=== PATIENT | male | born 1970 | race African-American/Black ===

== ENCOUNTER 2018-08-22 21:21 | Emergency (ER) | payer OTHER ==
[~2018-08-22] VITALS: Ht 182.9 cm; Wt 104.3 kg
[2018-08-22] MEDS ORDERED: LOSARTAN POTAS100 MG PO (21:49)
[2018-08-22] MEDS ORDERED: PROZAC20 MG PO (21:49)
[2018-08-22] MEDS ORDERED: ZOLPIDEM TARTRA10 MG PO (21:49)
[2018-08-22] MEDS ORDERED: OMEPRAZOLE 20 M20 M1 PO (21:50)
[2018-08-22 22:01] LABS: ABSOLUTE NEUTROPHILS 5.7 thou/uL (1.4-8.2); BASOPHILS 0.5 % (0.0-2.0); EOSINOPHILS 0.6 % (0.0-3.0); HEMATOCRIT 44.7 % (42.0-52.0); HEMOGLOBIN 15.4 gm/dL (14.0-18.0); LYMPHOCYTES 46.3 % (24.0-44.0); MCH 30.3 pg (26.0-34.0); MCHC 34.4 g/dL (28.0-37.0); MCV 88.2 fL (80.0-100.0); MONOCYTES 8.5 % (1.0-8.0); PLATELET COUNT 164 thou/uL (150-400); POLYS 44.1 % (36.0-66.0); RBC 5.07 mil/uL (4.50-6.00); RDW 13.4 % (10.5-14.5); WBC 12.8 thou/uL (4.0-11.0)
[2018-08-22 22:05] LABS: ANION GAP 13 mmol/L (7-16); BUN 16 mg/dL (7-18); CALCIUM 8.6 mg/dL (8.5-10.1); CHLORIDE 104 mmol/L (98-107); CO2 22 mmol/L (21-32); CREATININE 1.7 mg/dL (0.7-1.3); GLUCOSE 160 mg/dL (74-106); SODIUM 139 mmol/L (136-145)
[2018-08-22 22:06] LABS: POTASSIUM 2.7 mmol/L (3.5-5.1)
[2018-08-22 22:11] LABS: ALBUMIN 3.9 g/dL (3.4-5.0); SALICYLATE < 2.8 mg/dL (2.8-20.0); SGOT 26 U/L (15-37); SGPT 49 U/L (30-65); TOTAL BILIRUBIN 0.5 mg/dL (<0.1-1.0); TOTAL PROTEIN 7.6 g/dL (6.4-8.2)
[2018-08-23 00:36] LABS: URINE BILIRUBIN NEGATIVE (Negative); URINE BLOOD NEGATIVE (Negative); URINE CLARITY CLEAR; URINE COLOR YELLOW; URINE GLUCOSE-RANDOM* NEGATIVE (Negative); URINE KETONES NEGATIVE (Negative); URINE LEUKOCYTES NEGATIVE (Negative); URINE NITRITE NEGATIVE (Negative); URINE PROTEIN (DIPSTICK) NEGATIVE (Negative); URINE SPECIFIC GRAVITY 1.025 (1.005-1.035); URINE UROBILINOGEN 0.2 E.U./dl (0.2-1.0)
[2018-08-23 00:44] LABS: AMP/METHAMP Negative (Negative); BARBITURATES Negative (Negative); BENZODIAZEPINES Negative (Negative); COCAINE Negative (Negative); METHADONE Negative (Negative); OPIATES Negative (Negative); PCP Negative (Negative)
[2018-08-23 01:41] VITALS: BP 142/84
== END 2018-08-23 01:42 | disposition home or self-care (01) ==
LOC: ER 21:21
PROVIDERS: Physician Assistant
DX: F10.129 Alcohol abuse with intoxication, unspecified (principal); R45.851 Suicidal ideations; Y90.0 Blood alcohol level of less than 20 mg/100 ml

== ENCOUNTER → 2020-05-05 | Outpatient (CLI) | payer BC, OTHER ==
[~2020-05-05] VITALS: Ht 182.9 cm; Wt 108.0 kg
[~2020-05-05] MED LIST: AMLODIPINE-OLM1 EAC3 PO; LOSARTAN POTAS100 MG PO; OMEPRAZOLE 20 M20 M1 PO; PROZAC20 MG PO; ZOLPIDEM TARTRA10 MG PO
== END | disposition home or self-care (01) ==
LOC: LAB 09:00 → OR 05-08 10:10 → EDSTATUS 05-08 11:11 → OR 05-08 11:28
PROVIDERS: ATTEND Surgery
DX: K40.90 Unilateral inguinal hernia, without obstruction or gangrene, not specified as recurrent (principal); I10 Essential (primary) hypertension; J45.909 Unspecified asthma, uncomplicated; K21.9 Gastro-esophageal reflux disease without esophagitis; Z98.890 Other specified postprocedural states; Z79.899 Other long term (current) drug therapy; Z11.59 Encounter for screening for other viral diseases

== ENCOUNTER → 2021-06-11 | Outpatient (CLI) | payer OTHER | LOC: ULTRA 10:26 | PROVIDERS: ATTEND Nurse Practitioner | DX: M79.89 Other specified soft tissue disorders (principal) ==

== ENCOUNTER → 2022-01-01 | Outpatient (CLI) | payer OTHER ==
[~2022-01-01] MED LIST changes: +AMLODIPINE PO; +BENAZEPRIL PO; +FLOMAX0.4 MG PO; +PRILOSEC OTC20 MG PO
== END ==
LOC: LAB 10:11
PROVIDERS: ATTEND Student in an Organized Health Care Education/Training Program
DX: Z01.812 Encounter for preprocedural laboratory examination (principal); Z20.822 Contact with and (suspected) exposure to COVID-19

== ENCOUNTER → 2022-01-04 | Outpatient (CLI) | payer OTHER ==
[~2022-01-04] VITALS: Ht 182.9 cm; Wt 108.9 kg
--- NOTE | 2022-01-06 14:07 | PATH ---
[facility] [address] [place] [address] PATHOLOGY RPT PROCEDURE Name: KIRTI CASSIDY Room #: REG HARRISON Arita.#: [id number] Admission: 01/04/22 Date of : 74 Discharge: Report #: [id number] Path Case #: [id number] [facility] Accession Number: [id number] . 01 Material submitted: . gastrointestinal site - GASTRIC POLYP BX . 01 Clinical history: . GERD GASTRIC HIATAL HERNIA . 02 Diagnosis: Gastric polyp, biopsy: - Gastric antral mucosa with superficial foveolar type hyperplasia and mild chronic inactive gastritis. - Negative for adenomatous change or malignancy. - Negative for H. pylori-like organisms. . (ANK:mml; 01/06/2022) QL 01/06/2022 1056 Local . 02 Electronically signed: . Gaviota Calvo MD, Pathologist NPI- [id number] . 01 Gross description: . The specimen is received in formalin, labeled "Kirti Cassidy, gastric polyp BX". Received are 5 segments of pale capellan tissue ranging in size from 0.2 cm to 0.4 cm in maximum dimensions. The specimen is submitted entirely in cassette A1.([facility]; 01/05/2022) [facility] 01/05/2022 1236 Local . 02 Pathologist provided ICD-10: K29.50 . 02 CPT . 229683 Specimen Comment: A courtesy copy of this report has been sent to [phone] Specimen Comment: [phone] Specimen Comment: Report sent to / DR BOJORQUEZ Performed at: [address] [id number] MD Tristin Rodgers MD Phone: [phone] Performed at: 02 [facility] [address] [place] [address] PATHOLOGY RPT PROCEDURE Name: KIRTI CASSIDY Room #: REG CLI [facility].#: [id number] Admission: 01/04/22 Date of : 74 Discharge: Report #: [id number] Path Case #: [id number] [address] [place] [id number] MD Gaviota Calvo MD Phone: [phone]
== END | disposition home or self-care (01) ==
LOC: GI 06:07
PROVIDERS: ATTEND Internal Medicine Gastroenterology
DX: Z12.11 Encounter for screening for malignant neoplasm of colon (principal); K57.30 Diverticulosis of large intestine without perforation or abscess without bleeding; K64.8 Other hemorrhoids; K29.50 Unspecified chronic gastritis without bleeding; K31.7 Polyp of stomach and duodenum; K21.9 Gastro-esophageal reflux disease without esophagitis; R12 Heartburn; I10 Essential (primary) hypertension; J45.909 Unspecified asthma, uncomplicated; Z98.890 Other specified postprocedural states; Z79.899 Other long term (current) drug therapy
CPT/HCPCS: 62110; 62900